=== PATIENT | female | born 1955 | race Caucasian/White ===

== ENCOUNTER 2017-07-04 08:44 | Emergency (ER) | payer BC ==
[~2017-07-04] VITALS: Ht 152.4 cm; Wt 67.7 kg
[2017-07-04 08:48] VITALS: TEMP 98.5
[2017-07-04] MEDS ORDERED: PRALUENT P150 MG/1 M SQ (09:32)
[2017-07-04] MEDS ORDERED: XANAX 0.5MG0.5 MG PO (09:34)
[2017-07-04] MEDS ORDERED: TOPROL XL 25MG25 MG PO (09:34)
[2017-07-04 09:35] LABS: HEMATOCRIT 38.6 % (37.0-47.0); HEMOGLOBIN 12.7 g/dl (12.5-16.0); MEAN CELL VOLUME 93 fl (80.0-100.0); MEAN CORPUSCULAR HEMOGLOBIN 31 pg (27.0-31.0); MEAN CORPUSCULAR HGB CONC 33 g/dl (33.0-37.0); MEAN PLATELET VOLUME 8.8 fl (7.4-10.4); PLATELET COUNT 229 K/mm3 (130-400); RED BLOOD COUNT 4.15 M/mm3 (4.10-5.30); REDCELL DISTRIBUTION WIDTH-CV 13.8 % (11.5-14.5); WHITE BLOOD COUNT 7.3 K/mm3 (4.8-10.8)
[2017-07-04] MEDS ORDERED: GALZIN50 MG PO (09:35)
[2017-07-04 09:36] LABS: ADD PATHOLOGY DIFF REVIEW NO
[2017-07-04] MEDS ORDERED: NATURAL POTASS595 MG PO (09:36)
[2017-07-04] MEDS ORDERED: MASON NATURAL2000 IU PO (09:36)
[2017-07-04] MEDS ORDERED: CALCIUM-MAGNES1 EAC1 PO (09:36)
[2017-07-04] MEDS ORDERED: ZYRTEC 10MG10 MG PO (09:37)
[2017-07-04] MEDS ORDERED: THE MEDICINE S200 M2 PO (09:37)
[2017-07-04] MEDS ORDERED: ASPIRIN E.C. 8181 MG PO (09:38)
[2017-07-04] MEDS ORDERED: ZOFRAN ODT4 MG PO (09:38)
[2017-07-04 09:54] LABS: INFLUENZA B NEGATIVE
[2017-07-04 09:55] LABS: ADJUSTED CALCIUM 9.1 mg/dL (8.4-10.2); ALBUMIN 3.9 gm/dL (3.5-5.0); C-REACTIVE PROTEIN 2.4 mg/dL (0.0-0.9); CREATININE, serum 0.66 mg/dL (0.52-1.25); POTASSIUM 4.1 mmol/L (3.4-5.0); TOTAL PROTEIN 7.1 gm/dL (6.4-8.2)
[2017-07-04 10:04] LABS: TROPONIN-I 0.024 ng/mL (0.000-0.034)
[2017-07-04 10:09] LABS: PH 8 (5-8); URINE APPEARANCE Clear; URINE BACTERIA None Seen /hpf; URINE BILIRUBIN Negative (NEGATIVE); URINE BLOOD 1+ (NEGATIVE); URINE COLOR Yellow; URINE GLUCOSE Negative (NEGATIVE); URINE KETONE Negative (NEGATIVE); URINE UROBILINOGEN Negative (NEGATIVE)
[2017-07-04 10:58] LABS: BAND 15 % (0-10); MYELOCYTE 1 % (0-0); NEUTROPHILS 19 % (42.0-75.2); PLATELET ESTIMATE NORMAL (NORMAL); TOTAL CELLS COUNTED 100
[2017-07-04] MEDS ORDERED: ZITHROMAX 250M250 MG PO (11:02)
[2017-07-04] MEDS ORDERED: NORCO 325 MG-51 TAB PO (11:02)
[2017-07-04 12:09] VITALS: BP 132/67; PULSE 83
== END 2017-07-04 12:09 | disposition home or self-care (01) ==
LOC: COL.ER 08:44
PROVIDERS: Emergency Medicine
DX: J45.909 Unspecified asthma, uncomplicated (principal); I25.10 Atherosclerotic heart disease of native coronary artery without angina pectoris; Z90.710 Acquired absence of both cervix and uterus; Z95.5 Presence of coronary angioplasty implant and graft; Z79.82 Long term (current) use of aspirin
CPT/HCPCS: J7030; Q9967

== ENCOUNTER → 2019-01-11 | Outpatient (REF) ==
[~2019-01-11] MED LIST: ASPIRIN E.C. 8181 MG PO; CALCIUM-MAGNES1 EAC1 PO; GALZIN50 MG PO; MASON NATURAL2000 IU PO; NATURAL POTASS595 MG PO; NORCO 325 MG-51 TAB PO; PRALUENT P150 MG/1 M SQ; THE MEDICINE S200 M2 PO; TOPROL XL 25MG25 MG PO; XANAX 0.5MG0.5 MG PO; ZITHROMAX 250M250 MG PO; ZOFRAN ODT4 MG PO; ZYRTEC 10MG10 MG PO
== END ==
LOC: ZLAB.WCH 09:58
DX: Z01.89 Encounter for other specified special examinations (principal)